=== PATIENT | female | born 1940 | race Caucasian/White ===

== ENCOUNTER 2023-01-04 12:18 | Outpatient (CLI) | payer MEDICARE, BC | END 2023-01-04 12:19 | disposition home or self-care (01) | LOC: CSHULT 12:18 | PROVIDERS: ATTEND Urology | DX: C64.2 Malignant neoplasm of left kidney, except renal pelvis (principal); Z90.5 Acquired absence of kidney; N28.9 Disorder of kidney and ureter, unspecified | CPT/HCPCS: 71046; 76770 ==

== ENCOUNTER 2025-03-11 08:21 | Outpatient (CLI) | payer MEDICARE | END 2025-03-11 08:22 | disposition home or self-care (01) | LOC: CSHULT 08:21 | PROVIDERS: ATTEND Urology | DX: C64.2 Malignant neoplasm of left kidney, except renal pelvis (principal); N28.9 Disorder of kidney and ureter, unspecified | CPT/HCPCS: 71046; 76770 ==